=== PATIENT | female | born 1980 | race Caucasian/White ===

== ENCOUNTER 2017-07-16 11:15 | Emergency (ER) | payer BC, OTHER ==
[2017-07-16 11:22] VITALS: BP 129/95
[2017-07-16] MEDS ORDERED: AMOXICILLIN 250 MG CAPSULE PO STA (12:54)
[2017-07-16] MEDS ORDERED: DEXAMETHASONE 10 MG/ML VIAL PO STA (12:54)
[2017-07-16] MEDS ORDERED: BENZOCAINE/MENTHOL LOZENGE MM STA (12:54)
--- NOTE | 2017-07-16 12:59 | ED Physician Documentation ---
History of Present Illness - Stated complaint Stated Complaint: THROAT/EAR PX - Chief complaint Chief Complaint: Heent - Additonal information Additional information: fever sore throat ear pain for 2 days denies preg Review of Systems Constitutional: reports: Fever, Myalgias Ears: reports: Ear pain Throat: reports: Sore throat Respiratory: denies: Cough : denies: Now EGA PD ED PE NORMAL - Vitals Vital signs reviewed: Yes - HEENT HEENT: Moist mucous membranes. 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) - Neck Neck: Supple, no meningeal sign - Cardiac Cardiac: RRR - Respiratory Respiratory: No respiratory distress, Clear bilaterally - Derm Derm: Normal color - Neuro Neuro: Alert and oriented X 3 Results - Vitals Vitals: Vital Signs - 24 hr 07/16/17 11:18 Temperature 37.3 C Heart Rate 110 H Respiratory 15 Rate Blood Pressure 129/95 H O2 Saturation 99 Oxygen O2 Source Room air - Labs Labs: Laboratory Tests 07/16/17 11:23 Group A Strep Rapid Negative PD MEDICAL DECISION MAKING - ED course ED course: HR noted, in pain, has had fevers, dehydrated 2/2 sore throat - doubt sepsis etc Departure - Departure Disposition: 01 Home, Self Care Clinical Impression: Pharyngitis Qualifiers: Pharyngitis/tonsillitis etiology: unspecified etiology Qualified Code(s): J02.9 - Acute pharyngitis, unspecified Otitis media Qualifiers: Otitis media type: suppurative Chronicity: acute Laterality: left Recurrence: not specified as recurrent Spontaneous tympanic membrane rupture: without spontaneous rupture Qualified Code(s): H66.002 - Acute suppurative otitis media without spontaneous rupture of ear drum, left ear Condition: Good Instructions: ED Otitis Media Acute Adult Follow-Up: Jomar Vásquez DO [Primary Care Provider] - Comments: The rapid strep tests was negative An official throat culture will also be run But since you have an ear infection as well, i have prescribed antibiotics The dose of steroids given in the ER should decrease the pain and swelling in your throat - you need to then drink more fluids because your heart rate is a little elevated which indicates you may be getting dehydrated Motrin and tylenol as needed for pain
== END 2017-07-16 13:25 | disposition home or self-care (01) ==
LOC: ED 11:15
DX: J02.9 Acute pharyngitis, unspecified (principal); H66.002 Acute suppurative otitis media without spontaneous rupture of ear drum, left ear
CPT/HCPCS: 87070; 87430; 99282; 99283; A9270

== ENCOUNTER 2017-12-01 12:27 | Emergency (ER) | payer BC, MEDICARE ==
[2017-12-01 12:52] LABS: BASOPHILS % (AUTO) 0.6 %; EOSINOPHILS # (AUTO) 0.3 10^3/uL (0.0-0.7); EOSINOPHILS % (AUTO) 3.8 %; HGB - HEMOGLOBIN 13.4 g/dL (12.0-16.0); LYMPHOCYTES % (AUTO) 27.3 %; MEAN CORPUSCULAR HEMOGLOBIN 31.3 pg (27.0-31.0); MEAN CORPUSCULAR HGB CONC 34.7 g/dL (32.0-36.0); MEAN PLATELET VOLUME 8.2 fL (7.9-10.8); MONOCYTES # (AUTO) 0.6 10^3/uL (0.0-1.0); MONOCYTES % (AUTO) 7.8 %; NEUTROPHILS # (AUTO) 4.4 10^3/uL (1.5-6.6); NEUTROPHILS % (AUTO) 60.5 %; PLT - PLATELET COUNT 254 10^3/uL (130-450); RED BLOOD COUNT 4.27 10^6/uL (4.20-5.40); RED CELL DISTRIBUTION WIDTH 12.4 % (12.0-15.0); WHITE BLOOD COUNT 7.2 x10^3/uL (4.8-10.8)
[2017-12-01 13:00] LABS: BILIRUBIN,URINE NEGATIVE (NEGATIVE); GLUCOSE, URINE (UA) NEGATIVE (NEGATIVE); KETONES,URINE (UA) NEGATIVE (NEGATIVE); LEUKOCYTE ESTERASE, URINE NEGATIVE (NEGATIVE); NITRITE,URINE NEGATIVE (NEGATIVE); OCCULT BLOOD,URINE LARGE (NEGATIVE); PH,URINE 7.5 PH (5.0-7.5); PROTEIN,URINE NEGATIVE (NEGATIVE); UROBILINOGEN,URINE 0.2 (NORMAL) E.U./dL (NORMAL)
[2017-12-01 13:06] LABS: ALBUMIN 4.3 g/dL (3.2-5.5); ALBUMIN/GLOBULIN RATIO 1.6 (1.0-2.2); BILIRUBIN,TOTAL 0.4 mg/dL (0.2-1.0); CALCIUM 9.4 mg/dL (8.5-10.3); CREATININE 0.7 mg/dL (0.4-1.0)
[2017-12-01 13:07] LABS: CLARITY,URINE CLEAR (CLEAR); HCG UR QUAL POSITIVE
[2017-12-01 13:32] LABS: RBC,URINE 0-5 /HPF (0-5)
[2017-12-01 13:33] LABS: BACTERIA,URINE Few /HPF (None Seen); SQUAMOUS EPITHELIAL CELL,UR MOD Squamous (<= Few)
--- NOTE | 2017-12-01 14:32 | ED Physician Documentation ---
PD HPI ABD PAIN - Stated complaint Stated Complaint: AB PX/FEM - Chief complaint Chief Complaint: Abd Pain - History obtained from History obtained from: Patient - Additional information Additional information: 37-year-old female presents the emergency department with ongoing vaginal bleeding over the past several weeks. The patient also reports lower abdominal cramping associated with the bleeding. The patient denies a focal area of abdominal pain. No dysuria. No specific triggering factors. No relieving factors. The patient was seen by HOISTER and started on progesterone, the patient only took 1 dose because she had difficulty tolerating the side effects. Symptoms are described as moderate. Review of Systems Constitutional: reports: Fatigue. denies: Fever Eyes: denies: Photophobia Ears: denies: Ear pain Nose: denies: Rhinorrhea / runny nose Throat: denies: Sore throat Cardiac: denies: Chest pain / pressure Respiratory: denies: Cough GI: reports: Abdominal Pain : reports: Vaginal bleeding. denies: Dysuria, Discharge Skin: denies: Rash Musculoskeletal: denies: Neck pain Neurologic: denies: Generalized weakness Immunocompromised: denies: Chemotherapy PD PAST MEDICAL HISTORY - Past Surgical History Past Surgical History: No - Present Medications Home Medications: Ambulatory Orders Medication Instructions Recorded Confirmed Lurasidone HCl [Latuda] 80 mg ORAL DAILY 12/01/17 12/01/17 lamoTRIgine [LaMICtal] 200 mg ORAL DAILY 12/01/17 12/01/17 - Allergies Allergies/Adverse Reactions: Allergies Allergy/AdvReac Type Severity Reaction Status Date / Time narcotics Allergy Hallucinati Uncoded 12/01/17 12:33 ons - Social History Does the pt smoke?: No Smoking Status: Never smoker Does the pt drink ETOH?: No Does the pt have substance abuse?: No - Immunizations Immunizations are current?: Yes - POLST Patient has POLST: No PD ED PE NORMAL - General General: Alert and oriented X 3, No acute distress - HEENT HEENT: Atraumatic, PERRL, EOMI, Ears normal, Moist mucous membranes - Neck Neck: Supple, no meningeal sign - Cardiac Cardiac: RRR, Strong equal pulses - Respiratory Respiratory: No respiratory distress - Abdomen Abdomen: Soft, Non tender, Non distended - Back Back: No CVA TTP - Derm Derm: Normal color - Extremities Extremities: No deformity, No edema - Neuro Neuro: Alert and oriented X 3, Normal speech - Psych Psych: Normal affect Results - Vitals Vitals: Vital Signs - 24 hr 12/01/17 12/01/17 12/01/17 12:29 15:09 17:06 Temperature 36.8 C 36.6 C Heart Rate 91 86 93 Respiratory 16 18 16 Rate Blood Pressure 130/90 H 137/95 H 125/94 H O2 Saturation 94 99 96 Oxygen O2 Source Room air - Labs Labs: Laboratory Tests 12/01/17 12/01/17 12/01/17 12:45 12:45 12:55 WBC 7.2 RBC 4.27 Hgb 13.4 Hct 38.4 MCV 90.0 MCH 31.3 H MCHC 34.7 RDW 12.4 Plt Count 254 MPV 8.2 Neut # (Auto) 4.4 Lymph # (Auto) 2.0 [place] # (Auto) 0.6 Eos # (Auto) 0.3 Baso # (Auto) 0.0 Absolute Nucleated RBC 0.00 Nucleated RBC % 0.1 Sodium 139 Potassium 3.9 Chloride 103 Carbon Dioxide 27 Anion Gap 9.0 BUN 12 Creatinine 0.7 Estimated GFR (MDRD) 94 Glucose 91 Calcium 9.4 Total Bilirubin 0.4 AST 22 ALT 42 Alkaline Phosphatase 71 Total Protein 7.0 Albumin 4.3 Globulin 2.7 Albumin/Globulin Ratio 1.6 Lipase 24 HCG, Quant Urine Color YELLOW Urine Clarity CLEAR Urine pH 7.5 Ur Specific [place] 1.015 Urine Protein NEGATIVE Urine Glucose (UA) NEGATIVE Urine Ketones NEGATIVE Urine Occult Blood LARGE H Urine Nitrite NEGATIVE Urine Bilirubin NEGATIVE Urine Urobilinogen 0.2 (NORMAL) Ur Leukocyte Esterase NEGATIVE Urine RBC 0-5 Urine WBC 0-3 Ur Squamous Epith Cells MOD Squamous H Urine Bacteria Few Ur Microscopic Review INDICATED Urine Culture Comments NOT INDICATED Urine HCG, Qual POSITIVE Blood Type Antibody Screen 12/01/17 12/01/17 13:51 Unknown WBC RBC Hgb Hct MCV MCH MCHC RDW Plt Count MPV Neut # (Auto) Lymph # (Auto) [place] # (Auto) Eos # (Auto) Baso # (Auto) Absolute Nucleated RBC Nucleated RBC % Sodium Potassium Chloride Carbon Dioxide Anion Gap BUN Creatinine Estimated GFR (MDRD) Glucose Calcium Total Bilirubin AST ALT Alkaline Phosphatase Total Protein Albumin Globulin Albumin/Globulin Ratio Lipase HCG, Quant 847.21 Urine Color Urine Clarity Urine pH Ur Specific [place] Urine Protein Urine Glucose (UA) Urine Ketones Urine Occult Blood Urine Nitrite Urine Bilirubin Urine Urobilinogen Ur Leukocyte Esterase Urine RBC Urine WBC Ur Squamous Epith Cells Urine Bacteria Ur Microscopic Review Urine Culture Comments Urine HCG, Qual Blood Type A NEGATIVE Antibody Screen NEGATIVE - Rads (name of study) OB US Radiology: Final report received (1. An intrauterine gestation is not definitely seen. No adnexal masses are present. A small amount of free fluid is present. Suggest follow-up ultrasound in 10-14 days and correlation with beta-hCG levels. ) PD MEDICAL DECISION MAKING - ED course ED course: The patient's workup is indeterminate at this point. The patient has no clear findings on her ultrasound to suggest ectopic but it has not been fully ruled out. On reevaluation the patient is resting comfortably and appears to be in no significant distress. Presently, the patient appears appropriate for ongoing workup as an outpatient. I discussed this with the patient and she understands and agrees. I discussed the case with the on-call HOISTER Dr. Olsen who agrees to follow-up the patient in clinic for ongoing management. The patient has an appointment scheduled for this at 9:45 AM. I discussed with the patient warning signs for ectopic and various other issues and recommended returning to the emergency department immediately for any worsening or any concerns. Departure - Departure Disposition: 01 Home, Self Care Clinical Impression: Early stage of , Vaginal bleeding before 22 weeks gestation Condition: Good Instructions: Preg 1st Trimester, Bleeding Early Preg, ED Abdominal Pain Rule Out Ectopic Follow-Up: Sami Olsen MD [Provider Admit Priv/Credential] - Within 3 Days (Please follow-up with HOISTER this week for further evaluation. Please have your beta hCG rechecked in 3 days. He will also need a follow-up ultrasound in 10-14 days.) Comments: Please return to the emergency department immediately for any worsening or any concerns
--- NOTE | 2017-12-01 15:18 | Ultrasound Report ---
Reason: with pain Procedure Date: 12/01/2017 Accession Number: [id number] / [id number] Procedure: US - OB First Trimester CPT Code: FULL RESULT: EXAM: FIRST TRIMESTER OBSTETRIC ULTRASOUND (Less than 11 weeks) EXAM DATE: 12/01/2017 02:56 PM. CLINICAL HISTORY: with pain. LMP: Unknown. COMPARISONS: None. TECHNIQUE: Transabdominal and transvaginal ultrasound examination with static image documentation. CLINICAL DATES: EGA uncertain ASSESSMENT: Gestational Sac: Not definitely seen Embryo: Not seen Cardiac activity: Not seen MATERNAL STRUCTURES: Uterus: Anteverted. Unremarkable. Cervix: Closed. Right Ovary/Adnexa: The ovary measures 2 x 2.3 x 3.1 cm, volume 7.5 cc. Unremarkable. Left Ovary/Adnexa: The ovary measures 3.9 x 3.2 x 3.3 cm, volume 21.5 cc. Small cyst 2.3 x 1.4 x 2.1 cm Free Fluid: Small amount. Other: None. IMPRESSION: 1. An intrauterine gestation is not definitely seen. No adnexal masses are present. A small amount of free fluid is present. Suggest follow-up ultrasound in 10-14 days and correlation with beta-hCG levels. RADIA
[2017-12-01] MEDS ORDERED: RHO(D) IMMUNE GLOBULIN 300 MCG SYRINGE IM STA (16:30)
[2017-12-01 17:08] VITALS: BP 125/94
== END 2017-12-01 17:46 | disposition home or self-care (01) ==
LOC: ED 12:27
DX: O20.9 Hemorrhage in early pregnancy, unspecified (principal); Z3A.22 22 weeks gestation of pregnancy
CPT/HCPCS: 36415; 76801; 76817; 80053; 81001; 81003; 81025; 83690; 84702; 85025; 86850; 86900; 86901; 87086; 96372; 99283

== ENCOUNTER 2017-12-03 10:48 | Outpatient (CLI) | payer BC, MEDICARE | END 2017-12-03 10:49 | disposition home or self-care (01) | LOC: LAB 10:48 | PROVIDERS: ATTEND Obstetrics & Gynecology | DX: O20.0 Threatened abortion (principal) | CPT/HCPCS: 36415; 84144; 84702 ==

== ENCOUNTER 2017-12-03 11:17 | Outpatient (CLI) | payer BC, MEDICARE | END 2017-12-03 11:18 | disposition home or self-care (01) | LOC: LAB.R 11:17 | PROVIDERS: ATTEND Obstetrics & Gynecology | DX: O20.0 Threatened abortion (principal) | CPT/HCPCS: 87480; 87491; 87510; 87591; 87660 ==

== ENCOUNTER 2017-12-05 18:19 | Outpatient (CLI) | payer BC, MEDICARE | END 2017-12-05 18:20 | disposition home or self-care (01) | LOC: LAB 18:19 | PROVIDERS: ATTEND Obstetrics & Gynecology | DX: O20.0 Threatened abortion (principal) | CPT/HCPCS: 36415; 84702 ==

== ENCOUNTER 2017-12-15 14:36 | Outpatient (CLI) | payer BC, MEDICARE ==
[2017-12-15 15:48] LABS: BASOPHILS % (AUTO) 0.3 %; EOSINOPHILS # (AUTO) 0.3 10^3/uL (0.0-0.7); EOSINOPHILS % (AUTO) 4.2 %; HGB - HEMOGLOBIN 12.2 g/dL (12.0-16.0); LYMPHOCYTES # (AUTO) 1.3 10^3/uL (1.5-3.5); LYMPHOCYTES % (AUTO) 19.5 %; MEAN CORPUSCULAR HEMOGLOBIN 31.5 pg (27.0-31.0); MEAN CORPUSCULAR HGB CONC 34.6 g/dL (32.0-36.0); MEAN CORPUSCULAR VOLUME 91.1 fL (81.0-99.0); MEAN PLATELET VOLUME 8.9 fL (7.9-10.8); MONOCYTES # (AUTO) 0.4 10^3/uL (0.0-1.0); MONOCYTES % (AUTO) 6.1 %; NEUTROPHILS # (AUTO) 4.6 10^3/uL (1.5-6.6); NEUTROPHILS % (AUTO) 69.9 %; PLT - PLATELET COUNT 242 10^3/uL (130-450); RED BLOOD COUNT 3.88 10^6/uL (4.20-5.40); RED CELL DISTRIBUTION WIDTH 12.9 % (12.0-15.0); WHITE BLOOD COUNT 6.6 x10^3/uL (4.8-10.8)
== END 2017-12-15 14:37 | disposition home or self-care (01) ==
LOC: LAB 14:36
PROVIDERS: ATTEND Obstetrics & Gynecology
DX: O02.1 Missed abortion (principal)
CPT/HCPCS: 36415; 84702; 85025

== ENCOUNTER 2018-03-24 12:40 | Outpatient (CLI) | payer BC, MEDICARE ==
[2018-03-24 13:00] LABS: BASOPHILS % (AUTO) 0.8 %; EOSINOPHILS # (AUTO) 0.1 10^3/uL (0.0-0.7); EOSINOPHILS % (AUTO) 1.3 %; HGB - HEMOGLOBIN 14.2 g/dL (12.0-16.0); LYMPHOCYTES # (AUTO) 1.6 10^3/uL (1.5-3.5); LYMPHOCYTES % (AUTO) 26.6 %; MEAN CORPUSCULAR HEMOGLOBIN 30.2 pg (27.0-31.0); MEAN CORPUSCULAR VOLUME 88.8 fL (81.0-99.0); MEAN PLATELET VOLUME 8.3 fL (7.9-10.8); MONOCYTES # (AUTO) 0.4 10^3/uL (0.0-1.0); MONOCYTES % (AUTO) 7.4 %; NEUTROPHILS # (AUTO) 3.8 10^3/uL (1.5-6.6); NEUTROPHILS % (AUTO) 63.9 %; PLT - PLATELET COUNT 257 10^3/uL (130-450); RED BLOOD COUNT 4.68 10^6/uL (4.20-5.40); RED CELL DISTRIBUTION WIDTH 12.3 % (12.0-15.0); WHITE BLOOD COUNT 5.9 x10^3/uL (4.8-10.8)
[2018-03-24 13:27] LABS: ALBUMIN 4.4 g/dL (3.2-5.5); ALBUMIN/GLOBULIN RATIO 1.5 (1.0-2.2); BILIRUBIN,TOTAL 0.6 mg/dL (0.2-1.0); CALCIUM 9.1 mg/dL (8.5-10.3); CREATININE 0.7 mg/dL (0.4-1.0); TOTAL PROTEIN 7.3 g/dL (6.7-8.2)
[2018-03-24 14:24] LABS: THYROID STIMULATING HORMONE 1.04 uIU/mL (0.34-5.60)
[2018-03-24 14:26] LABS: FREE T4 (FREE THYROXINE) 0.82 ng/dL (0.58-1.64)
== END 2018-03-24 12:41 | disposition home or self-care (01) ==
LOC: LAB 12:40
PROVIDERS: ATTEND Nurse Practitioner Obstetrics & Gynecology
DX: R10.84 Generalized abdominal pain (principal); R10.2 Pelvic and perineal pain; R63.5 Abnormal weight gain; Z87.59 Personal history of other complications of pregnancy, childbirth and the puerperium
CPT/HCPCS: 36415; 80053; 84144; 84439; 84443; 84702; 85025

== ENCOUNTER 2018-04-07 08:03 | Outpatient (CLI) | payer MEDICARE, BC ==
--- NOTE | 2018-04-07 12:26 | Ultrasound Report ---
Reason: PELVIC PAIN Procedure Date: 04/07/2018 Accession Number: [id number] / [id number] Procedure: US - Pelvic w/Transvaginal CPT Code: FULL RESULT: EXAM: PELVIC ULTRASOUND EXAM DATE: 04/07/2018 09:15 AM. CLINICAL HISTORY: Pelvic pain. COMPARISON: None. TECHNIQUE: Realtime transabdominal pelvic scan performed to identify the uterus and adnexa and as an overview of other pelvic structures, followed by transvaginal scan to provide greater detail of the uterus and adnexa, with static image documentation. FINDINGS: Uterus: 6.2 x 2.7 x 3.4 cm, volume 30 cc. Anteverted position. Myometrium is within normal limits. Masses: None. Endometrium: 4.9 mm. Calcifications are identified along endometrium with apparent color Doppler signal in the endometrial region felt to be twinkle artifact. Cervix: Unremarkable. Right Ovary: 2.2 x 3.6 x 2.6 cm, volume 10.7 cc. Normal echotexture and blood flow. Dominant follicle measuring up to 1.6 cm is felt to be within physiologic limits. Left Ovary: 1.8 x 3.6 x 3.1 cm, volume 10.5 cc. Normal echotexture and blood flow. Free Fluid: None. Other: None. IMPRESSION: Calcifications within the endometrium. RADIA
--- NOTE | 2018-04-07 12:56 | Ultrasound Report ---
Reason: LOWER ABD PAIN Procedure Date: 04/07/2018 Accession Number: [id number] / [id number] Procedure: US - Abdomen Complete CPT Code: FULL RESULT: EXAM: ABDOMEN ULTRASOUND EXAM DATE: 04/07/2018 10:05 AM. CLINICAL HISTORY: Lower abdominal pain. COMPARISON: None. TECHNIQUE: Real-time scanning was performed with static images obtained. FINDINGS: Liver: Echogenic parenchyma which limits evaluation for underlying masses though none are seen. Right lobe of the liver measures at least 14.4 cm. Main portal vein flow: Hepatopetal. Gallbladder: Normal. No stones, wall thickening, or sonographic Gonzalez's sign. Biliary System: Common bile duct measures 4 mm. No intrahepatic or extrahepatic ductal dilatation. Pancreas: Visualized portion is unremarkable. Kidneys: Right: 11.4 cm longitudinally. Increased echogenicity of the medullary portions raising question of medullary nephrocalcinosis. A 1.3 cm simple cyst is also seen. Left: 12.7 cm longitudinally. Increased echogenicity of the medullary portions raising question of medullary nephrocalcinosis. Spleen: 10.8 cm. Normal in size and echotexture. Aorta and Inferior Vena Cava: Unremarkable. Other: None. IMPRESSION: Bilateral increased echogenicity of renal medulla, question medullary nephrocalcinosis. Echogenic liver parenchyma, likely steatosis. RADIA
== END 2018-04-07 08:04 | disposition home or self-care (01) ==
LOC: DI 08:03
PROVIDERS: ATTEND Nurse Practitioner Obstetrics & Gynecology
DX: R10.2 Pelvic and perineal pain (principal); R10.30 Lower abdominal pain, unspecified; N85.8 Other specified noninflammatory disorders of uterus
CPT/HCPCS: 76700; 76830; 76856

== ENCOUNTER 2018-05-07 11:48 | Outpatient (CLI) | payer BC, MEDICARE ==
[~2018-05-07 11:48] MED LIST: IOVERSOL 320 100 ML VIAL IVP ONE; IOVERSOL 320 50 ML VIAL ONE
[2018-05-07] MEDS ORDERED: IOPAMIDOL-300 100 ML VIAL ONE (12:17)
[2018-05-07] MEDS ORDERED: IOVERSOL 320 50 ML VIAL ONE (12:17)
[2018-05-07] MEDS ORDERED: IOPAMIDOL-300 100 ML VIAL IVP ONE (13:24)
[2018-05-07] MEDS ORDERED: IOVERSOL 320 50 ML VIAL PO ONE (13:24)
--- NOTE | 2018-05-07 15:51 | CT Report ---
Reason: PT STATES THAT SHE HAS HAD IV CONTRAST A COUPLE TI Procedure Date: 05/07/2018 Accession Number: [id number] / [id number] Procedure: CT - Abdomen/Pelvis W CPT Code: FULL RESULT: EXAM: CT ABDOMEN AND PELVIS EXAM DATE: 05/07/2018 01:23 PM. CLINICAL HISTORY: PT STATES THAT SHE HAS HAD IV CONTRAST A COUPLE TI. COMPARISONS: None. TECHNIQUE: Routine helical CT imaging was performed through the abdomen and pelvis. IV contrast: ISOVUE 300 100mL. Enteric contrast: Yes. Reconstructions: Coronal and sagittal. In accordance with CT protocol optimization, one or more of the following dose reduction techniques were utilized for this exam: automated exposure control, adjustment of mA and/or KV based on patient size, or use of iterative reconstructive technique. FINDINGS: Lung Bases: Unremarkable. Liver: Normal. No masses. Gallbladder/Bile Ducts: Unremarkable. Spleen: Normal. Pancreas: Normal. Adrenal Glands: Normal. Kidneys: Bilateral small renal cysts Peritoneal Cavity/Bowel: Small fat-containing umbilical hernia Sigmoid diverticulosis. No free fluid, free air or adenopathy. No masses or acute inflammatory process. The appendix is well visualized and normal. Pelvic Organs: Left ovary 1.5 cm corpus luteal cyst. The bladder and visualized pelvic organs are otherwise within normal limits. Vasculature: No aneurysms or other significant abnormality. Bones: No significant abnormality. Other: None. IMPRESSION: 1. Small bilateral renal cysts. 2. Normal appendix. 3. Sigmoid diverticulosis. 4. Left ovary 1.5 cm corpus luteal cyst RADIA
== END 2018-05-07 11:49 | disposition home or self-care (01) ==
LOC: DI 11:48
PROVIDERS: ATTEND Obstetrics & Gynecology
DX: R10.2 Pelvic and perineal pain (principal); N83.12 Corpus luteum cyst of left ovary; K57.30 Diverticulosis of large intestine without perforation or abscess without bleeding; Q61.02 Congenital multiple renal cysts
CPT/HCPCS: 74177; Q9967

== ENCOUNTER 2019-01-19 16:33 | Outpatient (CLI) | payer BC, MEDICARE ==
--- NOTE | 2019-01-20 15:17 | Ultrasound Report ---
Reason: PELVIC PAIN, RT OVARIAN CYST Procedure Date: 01/19/2019 Accession Number: [id number] / [id number] Procedure: US - Pelvic w/Transvaginal CPT Code: Final Report FULL RESULT: EXAM: PELVIC ULTRASOUND EXAM DATE: 01/19/2019 04:39 PM. CLINICAL HISTORY: PELVIC PAIN, RT OVARIAN CYST. COMPARISON: PELVIC W/TRANSVAGINAL 04/07/2018 8:40 AM. TECHNIQUE: Realtime transabdominal pelvic scan performed to identify the uterus and adnexa and as an overview of other pelvic structures, followed by transvaginal scan to provide greater detail of the uterus and adnexa, with static image documentation. FINDINGS: Uterus: 7.6 x 2.8 x 4 cm, volume 41 cc. Anteverted position. Normal overall size and echotexture. Masses: None. Endometrium: 6 mm. Calcification Cervix: Nabothian cysts Right Ovary: 3.2 x 2.3 x 2.2 cm, volume 8.4 cc. Complex 1.1 x 1.5 x 1 cm cyst Normal blood flow. Left Ovary: 3.9 x 2.2 x 2.9 cm, volume 13 cc. 2.4 x 1.9 x 2.4; a pseudocyst Normal echotexture and blood flow. Free Fluid: None. Other: None. IMPRESSION: 1. Mildly complex right ovarian cyst can be followed up in 1-2 cycles. RADIA
== END 2019-01-19 16:34 | disposition home or self-care (01) ==
LOC: DI 16:33
PROVIDERS: ATTEND Naprapath
DX: N83.291 Other ovarian cyst, right side (principal)
CPT/HCPCS: 76830; 76856

== ENCOUNTER 2019-03-16 13:00 | Emergency (ER) | payer BC, MEDICARE ==
[2019-03-16 13:50] LABS: BASOPHILS % (AUTO) 0.6 %; EOSINOPHILS # (AUTO) 0.1 10^3/uL (0.0-0.7); EOSINOPHILS % (AUTO) 1.7 %; HGB - HEMOGLOBIN 14.4 g/dL (12.0-16.0); LYMPHOCYTES # (AUTO) 1.3 10^3/uL (1.5-3.5); LYMPHOCYTES % (AUTO) 24.4 %; MEAN CORPUSCULAR HEMOGLOBIN 30.8 pg (27.0-31.0); MEAN CORPUSCULAR HGB CONC 33.3 g/dL (32.0-36.0); MEAN CORPUSCULAR VOLUME 92.3 fL (81.0-99.0); MEAN PLATELET VOLUME 10.3 fL (7.9-10.8); MONOCYTES # (AUTO) 0.5 10^3/uL (0.0-1.0); MONOCYTES % (AUTO) 8.3 %; NEUTROPHILS # (AUTO) 3.5 10^3/uL (1.5-6.6); NEUTROPHILS % (AUTO) 64.6 %; PLT - PLATELET COUNT 263 10^3/uL (130-450); RED BLOOD COUNT 4.68 10^6/uL (4.20-5.40); RED CELL DISTRIBUTION WIDTH 12.3 % (12.0-15.0); WHITE BLOOD COUNT 5.4 x10^3/uL (4.8-10.8)
[2019-03-16 14:05] LABS: ALBUMIN 4.5 g/dL (3.2-5.5); ALBUMIN/GLOBULIN RATIO 1.5 (1.0-2.2); BILIRUBIN,TOTAL 0.4 mg/dL (0.2-1.0); CALCIUM 9.1 mg/dL (8.5-10.3); CREATININE 0.8 mg/dL (0.4-1.0); TOTAL PROTEIN 7.5 g/dL (6.7-8.2)
--- NOTE | 2019-03-16 15:04 | Ultrasound Report ---
Reason: pelvic pain, R Procedure Date: 03/16/2019 Accession Number: [id number] / [id number] Procedure: US - Pelvic w/Transvag+Doppler Comp CPT Code: Final Report FULL RESULT: EXAM: PELVIC ULTRASOUND WITH DOPPLERS CLINICAL HISTORY: Right pelvic pain. COMPARISON: None. TECHNIQUE: Realtime transabdominal imaging performed to identify the uterus and adnexa and as an overview of other pelvic structures, followed by transvaginal imaging for better assessment of the endometrium and adnexa, with static image documentation. Color flow imaging and Doppler spectral analysis was performed to evaluate blood flow to the ovaries given pelvic pain and clinical concern for ovarian torsion. FINDINGS: Uterus: 6.8 x 3.3 x 3.9 cm, volume 45 cc. Anteverted position. Overall normal size and echotexture. Masses: A subserosal 0.6 cm hypoechoic mass is seen posteriorly, small fibroid versus venous dilation. Endometrium: 6 mm. Echogenic foci within the endometrium potentially represent focal calcifications. No convincing abnormal endometrial vascularity is detected. Cervix: Nabothian cysts are noted. Right Ovary: 3 x 2.3 x 2.5 cm, volume 9 cc. Normal echotexture. Arterial and venous blood flow are present by spectral Doppler and color Doppler. PSV 16.4 cm/sec. RI 0.7. Adnexa are unremarkable. Left Ovary: 2.9 x 3.3 x 3.2 cm, volume 16 cc. Normal echotexture. Arterial and venous blood flow is present. PSV 19.7 cm/sec. RI 0.4. Adnexa are unremarkable. Free Fluid: There is free fluid by the right ovary. Other: None. IMPRESSION: 1. Free fluid by the right ovary. Potentially ruptured cyst. 2. Arterial and venous blood flow is demonstrated to the right and left ovary. RADIA
[2019-03-16] MEDS ORDERED: HYDROmorphone 2 MG TABLET PO STA (15:09)
--- NOTE | 2019-03-16 15:13 | ED Physician Documentation ---
PD HPI ABD PAIN - Stated complaint Stated Complaint: ABD PX - Chief complaint Chief Complaint: Abd Pain - History obtained from History obtained from: Patient - History of Present Illness Timing - onset: How many weeks ago (2) Timing - duration: Weeks (2) Timing - details: Gradual onset Pain level max: 8 Pain level now: 8 Quality: Aching, Pain Location: RLQ Radiation: Other (non-radiating) Improved by: Laying still Worsened by: Moving Associated symptoms: No: Fever, Nausea, Vomiting, Hematemesis, Diarrhea, Constipation Similar symptoms before: Diagnosis (Patient states that she has polycystic ovarian syndrome and has recurrent ovarian cyst. She states that she is awaiting a hysterectomy at [facility]) Recently seen: Not recently seen Review of Systems Constitutional: denies: Fever, Chills Throat: denies: Sore throat Cardiac: denies: Chest pain / pressure Respiratory: denies: Cough GI: denies: Vomiting, Diarrhea : denies: Now EGA Skin: denies: Rash Musculoskeletal: denies: Neck pain, Back pain Neurologic: denies: Headache PD PAST MEDICAL HISTORY - Past Medical History Past Medical History: Yes Respiratory: Asthma FENCE RIDER: Other (PCOS) Psych: Bipolar disorder Musculoskeletal: Fibromyalgia - Past Surgical History Past Surgical History: Yes /FENCE RIDER: Dilation and currettage - Present Medications Home Medications: Ambulatory Orders Medication Instructions Recorded Confirmed Lurasidone HCl [Latuda] 80 mg ORAL DAILY 12/01/17 12/01/17 lamoTRIgine [LaMICtal] 200 mg ORAL DAILY 12/01/17 12/01/17 HYDROmorphone [Dilaudid] 2 mg PO Q4H PRN #14 tablet 03/16/19 - Allergies Allergies/Adverse Reactions: Allergies Allergy/AdvReac Type Severity Reaction Status Date / Time narcotics Allergy Hallucinati Uncoded 03/16/19 13:12 ons - Living Situation Living Situation: reports: With family Living Arrangement: reports: At home - Social History Does the pt smoke?: No Smoking Status: Never smoker Does the pt drink ETOH?: No Does the pt have substance abuse?: No - Immunizations Immunizations are current?: Yes - POLST Patient has POLST: No PD ED PE NORMAL - Vitals Vital signs reviewed: Yes - General General: Alert and oriented X 3, No acute distress, Well developed/nourished - HEENT HEENT: Moist mucous membranes - Neck Neck: Supple, no meningeal sign - Cardiac Cardiac: RRR - Respiratory Respiratory: No respiratory distress, Clear bilaterally - Abdomen Abdomen: Soft, Non tender, Non distended - Back Back: No CVA TTP - Derm Derm: Warm and dry - Extremities Extremities: No edema - Neuro Neuro: Alert and oriented X 3 - Psych Psych: Normal mood, Normal affect Results - Vitals Vitals: Vital Signs - 24 hr 03/16/19 03/16/19 03/16/19 13:12 13:17 15:47 Temperature 36.9 C 36.9 C 36.9 C Heart Rate 89 89 78 Respiratory 17 17 12 Rate Blood Pressure 125/94 H 125/94 H 122/86 H O2 Saturation 98 98 98 Oxygen O2 Source Room air - Labs Labs: Laboratory Tests 03/16/19 03/16/19 03/16/19 13:37 13:37 13:37 WBC 5.4 RBC 4.68 Hgb 14.4 Hct 43.2 MCV 92.3 MCH 30.8 MCHC 33.3 RDW 12.3 Plt Count 263 MPV 10.3 Neut # (Auto) 3.5 Lymph # (Auto) 1.3 L [place] # (Auto) 0.5 Eos # (Auto) 0.1 Baso # (Auto) 0.0 Absolute Nucleated RBC 0.00 Nucleated RBC % 0.0 Sodium 136 Potassium 3.8 Chloride 100 L Carbon Dioxide 25 Anion Gap 11.0 BUN 11 Creatinine 0.8 Estimated GFR (MDRD) 80 L Glucose 95 Calcium 9.1 Total Bilirubin 0.4 AST 19 ALT 27 Alkaline Phosphatase 65 Total Protein 7.5 Albumin 4.5 Globulin 3.0 Albumin/Globulin Ratio 1.5 Lipase 33 HCG, Quant < 0.60 Urine Color Urine Clarity Urine pH Ur Specific [place] Urine Protein Urine Glucose (UA) Urine Ketones Urine Occult Blood Urine Nitrite Urine Bilirubin Urine Urobilinogen Ur Leukocyte Esterase Ur Microscopic Review Urine Culture Comments 03/16/19 15:10 WBC RBC Hgb Hct MCV MCH MCHC RDW Plt Count MPV Neut # (Auto) Lymph # (Auto) [place] # (Auto) Eos # (Auto) Baso # (Auto) Absolute Nucleated RBC Nucleated RBC % Sodium Potassium Chloride Carbon Dioxide Anion Gap BUN Creatinine Estimated GFR (MDRD) Glucose Calcium Total Bilirubin AST ALT Alkaline Phosphatase Total Protein Albumin Globulin Albumin/Globulin Ratio Lipase HCG, Quant Urine Color YELLOW Urine Clarity CLEAR Urine pH 6.0 Ur Specific [place] <=1.005 Urine Protein NEGATIVE Urine Glucose (UA) NEGATIVE Urine Ketones NEGATIVE Urine Occult Blood TRACE-INTA Urine Nitrite NEGATIVE Urine Bilirubin NEGATIVE Urine Urobilinogen 0.2 (NORMAL) Ur Leukocyte Esterase NEGATIVE Ur Microscopic Review NOT INDICATED Urine Culture Comments NOT INDICATED - Rads (name of study) Pelvic ultrasound Radiology: Prelim report reviewed, EMP read contemporaneously, See rad report (. Free fluid by the right ovary. Potentially ruptured cyst. Arterial and venous blood was demonstrated to the right and left ovary. ) PD MEDICAL DECISION MAKING - ED course Complexity details: reviewed results, re-evaluated patient, considered differential, d/w patient ED course: 38-year-old female with what appears to be a ruptured ovarian cyst. Has polycystic ovarian syndrome. Will prescribe pain medication for home and have her follow-up with her doctor for further care. Patient counseled regarding signs and symptoms for which I believe and urgent re-evaluation would be necessary. Patient with good understanding of and agreement to plan and is comfortable going home at this time This document was made in part using voice recognition software. While efforts are made to proofread this document, sound alike and grammatical errors may occur. Departure - Departure Disposition: 01 Home, Self Care Clinical Impression: Ruptured ovarian cyst Condition: Good Instructions: ED Cyst Ovarian Follow-Up: SARITA AYOUB MD [Physician No Access] - Within 1 week ROWENA FRAIRE DO [Primary Care Provider] - MELANIE SKINNER [Physician No Access] - Prescriptions: HYDROmorphone [Dilaudid] 2 mg PO Q4H PRN #14 tablet PRN Reason: Abdominal Pain Comments: You appear to have a right-sided ovarian cyst that has ruptured. It does not appear to be bleeding. Your blood counts are normal. Use the pain medication as needed. Follow-up with your doctor for further care. Do not drink alcohol or drive while on narcotic pain medicine. Note that many narcotic pain relievers also contain tylenol/acetaminophen. Please ensure that your total dose of acetaminophen from all sources does not exceed 3 grams (3000mg) per day. You may constipated on this medication, take a stool softener such as "Colace" twice a day while you are on it. Also recommend a [id number] laxative such as senna or MiraLAX any day that you do not have a bowel movement. If you received narcotic pain medication in the emergency department, do not drive or operate machinery for the next 24 hours. Discharge Date/Time: 03/16/19 15:51
[2019-03-16 15:18] LABS: BILIRUBIN,URINE NEGATIVE (NEGATIVE); GLUCOSE, URINE (UA) NEGATIVE (NEGATIVE); KETONES,URINE (UA) NEGATIVE (NEGATIVE); LEUKOCYTE ESTERASE, URINE NEGATIVE (NEGATIVE); NITRITE,URINE NEGATIVE (NEGATIVE); OCCULT BLOOD,URINE TRACE-INTA (NEGATIVE); PROTEIN,URINE NEGATIVE (NEGATIVE); UROBILINOGEN,URINE 0.2 (NORMAL) E.U./dL (NORMAL)
[2019-03-16 15:20] LABS: CLARITY,URINE CLEAR (CLEAR)
[2019-03-16 15:48] VITALS: BP 122/86
== END 2019-03-16 15:51 | disposition home or self-care (01) ==
LOC: ED 13:00
DX: N83.201 Unspecified ovarian cyst, right side (principal); E28.2 Polycystic ovarian syndrome
CPT/HCPCS: 36415; 76830; 76856; 80053; 81003; 83690; 84702; 85025; 93975; 99284; A9270; 81001; 87086

== ENCOUNTER 2019-09-09 18:22 | Outpatient (CLI) | payer BC, MEDICARE ==
--- NOTE | 2019-09-09 19:57 | Ultrasound Report ---
PROCEDURE: Abdomen Limited INDICATIONS: RLQ PAIN, LLQ PAIN, HX OF DIVERTICULITIS TECHNIQUE: Real-time focused scanning was performed of the abdomen, with image documentation. COMPARISON: CT of abdomen and pelvis dated 05/07/2018 FINDINGS: Appendix is not visualized. There is absence of free fluid in right lower quadrant. No lymphadenopath y is seen. Tendinosis with observed during the exam. IMPRESSION: Appendix is not visualized on the current study. Right lower quadrant pain noted during the study. Ap pendicitis is not excluded. Reviewed by: Osmin Tolliver MD on 09/09/2019 7:56 PM PDT Approved by: Osmin Tolliver MD on 09/09/2019 7:56 PM PDT Station ID: [id number]
== END 2019-09-09 18:23 | disposition home or self-care (01) ==
LOC: DI 18:22
PROVIDERS: ATTEND Naprapath
DX: R10.31 Right lower quadrant pain (principal); R10.32 Left lower quadrant pain; Z87.19 Personal history of other diseases of the digestive system
CPT/HCPCS: 76705

== ENCOUNTER 2019-10-01 07:56 | Outpatient (CLI) | payer BC, MEDICARE ==
[2019-10-01 08:48] LABS: ALBUMIN 4.6 g/dL (3.2-5.5); ALBUMIN/GLOBULIN RATIO 1.9 (1.0-2.2); BILIRUBIN,TOTAL 0.5 mg/dL (0.2-1.0); CALCIUM 9.1 mg/dL (8.5-10.3); CREATININE 0.8 mg/dL (0.4-1.0)
== END 2019-10-01 07:57 | disposition home or self-care (01) ==
LOC: LAB 07:56
PROVIDERS: ATTEND Psychiatry & Neurology Psychiatry
DX: F31.74 Bipolar disorder, in full remission, most recent episode manic (principal); Z79.899 Other long term (current) drug therapy
CPT/HCPCS: 36415; 80053; 80175

== ENCOUNTER 2019-11-28 18:52 | Outpatient (CLI) | payer BC, MEDICARE ==
--- NOTE | 2019-11-29 16:34 | Ultrasound Report ---
PROCEDURE: Pelvic w/Transvaginal INDICATIONS: PELVIC PAIN TECHNIQUE: Real-time scanning was performed of the pelvic organs, with image documentation. Additional endovagi nal scanning was necessary due to incomplete visualization of the adnexal and endometrial structures by transabdominal scanning. COMPARISON: Pelvic ultrasound 03/16/2019 04/07/2018, abdomen ultrasound 01/10/2020 FINDINGS: Transabdominal scanning: Limited scanning through the kidneys shows no hydronephrosis. 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 No pathologic free abdominal or pelvic fluid. Endovaginal scanning: Uterus: Uterus is normal in size at 7.2 x 3.0 x 4.0 cm The endometrium measures 8 mm in combined t hickness. There is a subtle focus of heterotopic echogenicity within the mid posterior subserosal re gion measuring 6 x 3 x 4 mm, similar compared to prior exam. Nabothian cysts are noted. Ovaries: Right ovary measures 3.4 x 2.7 x 3.0 cm, volume 14.5 cc. Left ovary measures 3.3 x 2.0 x 2. 1 cm, volume 7.3 cc. Prominent right ovarian follicle is noted. IMPRESSION: 1. Stable appearance of mild heterogeneous echogenicity within the uterus suggestive of small fibroid . 2. Mild increased echogenicity within the renal medullary portions bilaterally suggestive medullary s ponge kidney. Reviewed by: Diana Draper MD on 11/29/2019 4:32 PM PDT Approved by: Diana Draper MD on 11/29/2019 4:32 PM PDT Station ID: [id number]
== END 2019-11-28 18:53 | disposition home or self-care (01) ==
LOC: DI 18:52
PROVIDERS: ATTEND Obstetrics & Gynecology
DX: R10.2 Pelvic and perineal pain (principal)
CPT/HCPCS: 76830; 76856

== ENCOUNTER 2019-12-13 08:11 | Outpatient (CLI) | payer BC, MEDICARE ==
[2019-12-13 10:02] LABS: ALBUMIN 4.5 g/dL (3.2-5.5); ALBUMIN/GLOBULIN RATIO 1.7 (1.0-2.2); BILIRUBIN,TOTAL 0.7 mg/dL (0.2-1.0); CALCIUM 9.4 mg/dL (8.5-10.3); CREATININE 0.7 mg/dL (0.4-1.0); TOTAL PROTEIN 7.2 g/dL (6.7-8.2)
== END 2019-12-13 08:12 | disposition home or self-care (01) ==
LOC: LAB 08:11
PROVIDERS: ATTEND Psychiatry & Neurology Psychiatry
DX: F31.74 Bipolar disorder, in full remission, most recent episode manic (principal); Z79.899 Other long term (current) drug therapy
CPT/HCPCS: 36415; 80053; 80175

== ENCOUNTER 2020-02-01 16:11 | Outpatient (CLI) | payer BC, MEDICARE ==
[2020-02-02 04:01] LABS: VALPROIC ACID (DEPAKOTE) 51.2 ug/mL
== END 2020-02-01 16:12 | disposition home or self-care (01) ==
LOC: LAB 16:11
PROVIDERS: ATTEND Psychiatry & Neurology Psychiatry
DX: F31.74 Bipolar disorder, in full remission, most recent episode manic (principal); Z79.899 Other long term (current) drug therapy
CPT/HCPCS: 36415; 80164

== ENCOUNTER 2020-03-20 08:09 | Outpatient (CLI) | payer BC, MEDICARE ==
[2020-03-20 08:57] LABS: VALPROIC ACID (DEPAKOTE) 71.9 ug/mL
== END 2020-03-20 08:10 | disposition home or self-care (01) ==
LOC: LAB 08:09
PROVIDERS: ATTEND Psychiatry & Neurology Psychiatry
DX: F31.74 Bipolar disorder, in full remission, most recent episode manic (principal)
CPT/HCPCS: 36415; 80164; 80175

== ENCOUNTER 2020-08-18 09:34 | Outpatient (CLI) | payer BC, MEDICARE ==
[2020-08-18 10:10] LABS: ALBUMIN 4.2 g/dL (3.2-5.5); ALBUMIN/GLOBULIN RATIO 1.8 (1.0-2.2); ALKALINE PHOSPHATASE 47 IU/L (42-121); ALT ALANINE AMINOTRANSFERASE 22 IU/L (10-60); AST ASPARTATE AMINOTRANSFERASE 17 IU/L (10-42); BILIRUBIN,TOTAL 0.4 mg/dL (0.2-1.0); BUN - BLOOD UREA NITROGEN 12 mg/dL (6-20); CALCIUM 8.5 mg/dL (8.5-10.3); CARBON DIOXIDE - CO2 26 mmol/L (21-32); CHLORIDE 105 mmol/L (101-111); CREATININE 0.7 mg/dL (0.4-1.0); GFR - MDRD 92 (>89); GLUCOSE 114 mg/dL (70-100); POTASSIUM 4.1 mmol/L (3.5-5.0); SODIUM 139 mmol/L (135-145); TOTAL PROTEIN 6.6 g/dL (6.7-8.2); VALPROIC ACID (DEPAKOTE) 55.3 ug/mL
== END 2020-08-18 09:35 | disposition home or self-care (01) ==
LOC: LAB 09:34
PROVIDERS: ATTEND Psychiatry & Neurology Psychiatry
DX: Z79.899 Other long term (current) drug therapy (principal); F31.74 Bipolar disorder, in full remission, most recent episode manic
CPT/HCPCS: 36415; 80053; 80164; 80175

== ENCOUNTER 2020-09-27 14:16 | Emergency (ER) | payer BC, MEDICARE ==
--- NOTE | 2020-09-27 14:57 | ED Physician Documentation ---
PD HPI HEADACHE - Stated complaint Stated Complaint: HEADACHE - Chief complaint Chief Complaint: Neuro - History obtained from History obtained from: Patient - History of Present Illness Timing - onset: How many days ago (8) Timing - onset during: Light activity Timing - duration: Days (8) Timing - details: Gradual onset, Still present, Waxing and waning Worst headache ever?: No: Worst headache ever? (similar to other migraines and status migraines. No atypical symptoms.) Location: Front, Left Quality: Throbbing, Aching Associated symptoms: Nausea. No: Fever, Stiff neck, Vomiting, Weakness, Vision changes (but has light sensitivity.) Improved by: Dark room. No: Meds (decreased headache with Rx meds from her neurologist. pain improved minimal with oral meds, but back to full within hour or two. Talked with Neurology office and directed to ER. Patient has had to come to ER infrequently for status migraines and does well with IV meds.) Worsened by: Light Contributing factors: No: Recent illness, Trauma Similar symptoms before: Diagnosis (status migraine intermittently (few times yearly).) Recently seen: Not recently seen Review of Systems Constitutional: denies: Fever, Chills Eyes: reports: Photophobia. denies: Loss of vision Nose: denies: Rhinorrhea / runny nose, Congestion Throat: denies: Sore throat Respiratory: denies: Cough GI: reports: Nausea. denies: Abdominal Pain, Vomiting, Diarrhea Skin: denies: Rash, Lesions Neurologic: reports: Generalized weakness, Headache. 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: Other (PCOS) Psych: Bipolar disorder Musculoskeletal: Fibromyalgia - Past Surgical History Past Surgical History: Yes /SENIOR UNDERWRITER: Dilation and currettage - Present Medications Home Medications: Ambulatory Orders Medication Instructions Recorded Confirmed Lurasidone HCl [Latuda] 80 mg ORAL DAILY 12/01/17 12/01/17 lamoTRIgine [LaMICtal] 200 mg ORAL DAILY 12/01/17 12/01/17 HYDROmorphone [Dilaudid] 2 mg PO Q4H PRN #14 tablet 03/16/19 Butalb/Acetaminophen/Caffeine 1 each PO Q6H PRN #15 09/27/20 [Fioricet 50-300-40 mg Capsule] Indomethacin [Indocin] 25 mg PO BIDWM #10 09/27/20 Promethazine Supp [Phenergan Supp] 25 mg NV Q6H PRN #15 supp 09/27/20 - Allergies Allergies/Adverse Reactions: Allergies Allergy/AdvReac Type Severity Reaction Status Date / Time narcotics Allergy Hallucinati Uncoded 03/16/19 13:12 ons - Social History Does the pt smoke?: No Smoking Status: Never smoker Does the pt drink ETOH?: No Does the pt have substance abuse?: No - Immunizations Immunizations are current?: Yes - POLST Patient has POLST: No PD ED PE NORMAL - Vitals Vital signs reviewed: Yes - General General: Alert and oriented X 3, No acute distress (appears ncomfrtable but pleasant and conversant. wearing sunglasses to reduce light. ), Well developed/nourished - HEENT HEENT: PERRL, EOMI, Pharynx benign - Neck Neck: Supple, no meningeal sign, No adenopathy - Cardiac Cardiac: No murmur - Respiratory Respiratory: Clear bilaterally - Derm Derm: Normal color, Warm and dry - Neuro Neuro: Alert and oriented X 3, outside sales 2-12 intact, No motor deficit, No sensory deficit, Normal speech, Other Eye Opening: Spontaneous Motor: Obeys Commands Verbal: Oriented GCS Score: 15 - Psych Psych: Normal mood, Normal affect Results - Vitals Vitals: Vital Signs - 24 hr 09/27/20 09/27/20 14:42 18:13 Temperature 36.6 C 36.6 C Heart Rate 70 73 Respiratory 15 16 Rate Blood Pressure 121/80 110/87 H O2 Saturation 100 99 Oxygen O2 Source Room air PD MEDICAL DECISION MAKING - ED course Complexity details: reviewed old records, re-evaluated patient (improved mildly with initial meds. Given 2nd dose of Reglan. Initially was not noticing much im provment so getting ordered for more meds, but then she said the headache broke and was much better, with just mild now. Still some nausea. So given just Inapsine as third round med. ), d/w patient Departure - Departure Disposition: 01 Home, Self Care Clinical Impression: Migraine with status migrainosus Qualifiers: Migraine type: without aura Intractability: intractable Qualified Code(s): G43.011 - Migraine without aura, intractable, with status migrainosus Condition: Stable Record reviewed to determine appropriate education?: Yes Instructions: ED Headache Migraine Prescriptions: Butalb/Acetaminophen/Caffeine [Fioricet 50-300-40 mg Capsule] 1 each PO Q6H PRN #15 PRN Reason: Migraine Indomethacin [Indocin] 25 mg PO BIDWM #10 Promethazine Supp [Phenergan Supp] 25 mg NV Q6H PRN #15 supp PRN Reason: Nausea / Vomiting Comments: Continue your current medications. Try to stay well-hydrated. For nausea/migraine you could try the promethazine suppository and see if that helps with nausea or vomiting. Add Fioricet antimigraine medication every 6 hours if needed for headache. If tolerated, you could try indomethacin anti-inflammatory twice daily with food for the next 3 to 5 days as well. This is used at times for persistent headache. Follow-up with your neurologist over the next several days to update on your symptoms. Return to the ER as needed. For some reason, I could not trasmit them electronically to [facility], so printed the prescriptions. Discharge Date/Time: 09/27/20 18:14
[2020-09-27] MEDS ORDERED: SODIUM CHLORIDE 0.9% 1,000 ML IV STA ×2 (15:20→17:13)
[2020-09-27] MEDS ORDERED: METOCLOPRAMIDE 10 MG/2 ML VIAL IVP STA ×2 (15:21→16:10)
[2020-09-27] MEDS ORDERED: KETOROLAC 15 MG/ML VIAL IVP STA (15:21)
[2020-09-27] MEDS ORDERED: diphenhydrAMINE INJ 50 MG/ML VIAL IVP STA (15:21)
[2020-09-27] MEDS ORDERED: DEXAMETHASONE 10 MG/ML VIAL IVP STA (15:21)
[2020-09-27] MEDS ORDERED: DROPERIDOL 5 MG/2 ML VIAL IVP STA (16:47)
[2020-09-27] MEDS ORDERED: KETAMINE 500 MG/10 ML VIAL IVP STA (16:48)
[2020-09-27 18:14] VITALS: BP 110/87
== END 2020-09-27 18:14 | disposition home or self-care (01) ==
LOC: ED 14:16
DX: G43.011 Migraine without aura, intractable, with status migrainosus (principal)
CPT/HCPCS: 96361; 96374; 96375; 96376; 99284; 99285; J1200; J2765

== ENCOUNTER 2020-11-02 11:53 | Outpatient (CLI) | payer BC, MEDICARE ==
[2020-11-02 13:23] LABS: FOLLICLE STIMULATING HORMONE 3.93 mIU/mL
[2020-11-02 13:24] LABS: LUTEINIZING HORMONE 2.72 mIU/mL
[2020-11-02 14:08] LABS: VALPROIC ACID (DEPAKOTE) 96.1 ug/mL
[2020-11-02 14:17] LABS: T4 (THYROXINE) 6.03 ug/dL (6.09-12.23)
[2020-11-02 14:21] LABS: THYROID STIMULATING HORMONE 1.08 uIU/mL (0.34-5.60)
[2020-11-02 14:23] LABS: FREE T4 (FREE THYROXINE) 0.68 ng/dL (0.58-1.64)
== END 2020-11-02 11:54 | disposition home or self-care (01) ==
LOC: LAB 11:53
PROVIDERS: ATTEND Psychiatry & Neurology Psychiatry
DX: E28.2 Polycystic ovarian syndrome (principal); G43.909 Migraine, unspecified, not intractable, without status migrainosus; Z79.899 Other long term (current) drug therapy; F31.74 Bipolar disorder, in full remission, most recent episode manic
CPT/HCPCS: 36415; 80164; 80327; 82627; 82672; 83001; 83002; 84144; 84436; 84439; 84443

== ENCOUNTER 2021-01-16 11:22 | Outpatient (CLI) | payer BC | END 2021-01-16 11:23 | disposition home or self-care (01) | LOC: LAB 11:22 | PROVIDERS: ATTEND Naturopath | DX: Z36.9 Encounter for antenatal screening, unspecified (principal) | CPT/HCPCS: 36415; 84702 ==

== ENCOUNTER 2021-04-19 09:06 | Outpatient (CLI) | payer BC ==
[2021-04-19 09:49] LABS: ALBUMIN 4.3 g/dL (3.2-5.5); ALBUMIN/GLOBULIN RATIO 1.7 (1.0-2.2); ALKALINE PHOSPHATASE 39 IU/L (42-121); ALT ALANINE AMINOTRANSFERASE 25 IU/L (10-60); AST ASPARTATE AMINOTRANSFERASE 18 IU/L (10-42); BILIRUBIN,TOTAL 0.7 mg/dL (0.2-1.0); BUN - BLOOD UREA NITROGEN 16 mg/dL (6-20); CALCIUM 9.1 mg/dL (8.5-10.3); CARBON DIOXIDE - CO2 27 mmol/L (21-32); CHLORIDE 103 mmol/L (101-111); CREATININE 0.9 mg/dL (0.4-1.0); GFR - MDRD 69 (>89); GLUCOSE 99 mg/dL (70-100); POTASSIUM 4.2 mmol/L (3.5-5.0); SODIUM 140 mmol/L (135-145); TOTAL PROTEIN 6.8 g/dL (6.7-8.2); VALPROIC ACID (DEPAKOTE) 79.7 ug/mL
[2021-04-19 10:04] LABS: LITHIUM 0.26 mmol/L; THYROID STIMULATING HORMONE 1.58 uIU/mL (0.34-5.60)
[2021-04-19 10:06] LABS: FREE T4 (FREE THYROXINE) 0.65 ng/dL (0.58-1.64)
== END 2021-04-19 09:07 | disposition home or self-care (01) ==
LOC: LAB 09:06
PROVIDERS: ATTEND Psychiatry & Neurology Psychiatry
DX: F31.74 Bipolar disorder, in full remission, most recent episode manic (principal); F31.63 Bipolar disorder, current episode mixed, severe, without psychotic features; Z79.899 Other long term (current) drug therapy
CPT/HCPCS: 36415; 80053; 80164; 80175; 80178; 84439; 84443

== ENCOUNTER 2021-05-08 11:39 | Outpatient (CLI) | payer BC ==
[2021-05-08 12:26] LABS: % IRON SATURATION 26 % (20-50); BUN - BLOOD UREA NITROGEN 11 mg/dL (6-20); CALCIUM 9.1 mg/dL (8.5-10.3); CARBON DIOXIDE - CO2 26 mmol/L (21-32); CHLORIDE 101 mmol/L (101-111); CREATININE 0.8 mg/dL (0.4-1.0); GFR - MDRD 79 (>89); GLUCOSE 105 mg/dL (70-100); IRON 98 ug/dL (28-170); POTASSIUM 4.1 mmol/L (3.5-5.0); SODIUM 138 mmol/L (135-145); TOTAL IRON BINDING CAPACITY 379 ug/dL (250-450); TRANSFERRIN 271 mg/dL (192-382); VALPROIC ACID (DEPAKOTE) 79.3 ug/mL
== END 2021-05-08 11:40 | disposition home or self-care (01) ==
LOC: LAB 11:39
PROVIDERS: ATTEND Psychiatry & Neurology Psychiatry
DX: F31.74 Bipolar disorder, in full remission, most recent episode manic (principal); D64.9 Anemia, unspecified; Z79.899 Other long term (current) drug therapy; F31.63 Bipolar disorder, current episode mixed, severe, without psychotic features
CPT/HCPCS: 36415; 80048; 80164; 80178; 82728; 83540; 84466; 85014

== ENCOUNTER 2022-04-18 14:54 | Emergency (ER) | payer MEDICARE, BC ==
--- OUTSIDE RECORDS SUMMARY | 2022-04-18 15:23 | EXTERNAL MEDICAL SUMMARY RPT | Continuity of Care Document ---
:1980 Author Organization [facility] Address [address] [place] [address] Phone Care Team Providers Name Role Phone Alexis Potts Unavailable Unavailable Allergies No information. Encounters No information. Functional Status No information. Immunizations No information. Medications date description [facility] Dival[facility] 2022-01-23 00:00 [place] [facility] 2022-01-23 00:00 Lamotrigine [facility] Problems date description facility 2022-01-23 00:00 Postsurgical menopause [facility] 2022-01-31 12:24 Asymptomatic postprocedural ovarian yoan [facility] 2022-01-31 12:24 Premenstrual dysphoric disorder [facility] Procedures No information. Results/Labs test date author facility value unit interpret ation Result panel 1 (unknown) (no date) (unknown) [place] (no value) (units [facility] unknown) Result panel 2 (unknown) (no date) (unknown) [place] (no value) (units [facility] unknown) Result panel 3 (unknown) (no date) (unknown) [place] (no value) (units ([facility]) [facility] unknown) Result panel 4 (unknown) (no date) (unknown) (unknown) 541.0 ug/dl (unkn own) (unknown) (no date) (unknown) (unknown) 541.0 ug/dl 2191- 5 (unknown) (no date) (unknown) (unknown) 85 pg/ml 2254- 1 (unknown) (no date) (unknown) (unknown) 85 pg/ml (unkn own) Result panel 5 (unknown) (no date) (unknown) (unknown) 1.97 ng/ml (unkn own) (unknown) (no date) (unknown) (unknown) 1.97 ng/ml (unkn own) Result panel 6 (unknown) (no date) (unknown) (unknown) 541.0 ug/dl (unkn own) (unknown) (no date) (unknown) (unknown) 541.0 ug/dl (unkn own) Result panel 7 (unknown) (no date) (unknown) (unknown) 85 pg/ml (unkn own) (unknown) (no date) (unknown) (unknown) 85 pg/ml (unkn own) Social History date description facility 2022-01-23 00:00 Never smoked tobacco (finding) [facility] 2022-03-26 00:00 Never smoked tobacco (finding) [facility] Vital Signs No information.
[2022-04-18 15:35] LABS: BASOPHILS % (AUTO) 0.3 %; EOSINOPHILS # (AUTO) 0.1 10^3/uL (0.0-0.7); EOSINOPHILS % (AUTO) 0.8 %; HCT - HEMATOCRIT 39.4 % (37.0-47.0); HGB - HEMOGLOBIN 12.8 g/dL (12.0-16.0); LYMPHOCYTES % (AUTO) 30.1 %; MEAN CORPUSCULAR HEMOGLOBIN 30.6 pg (27.0-31.0); MEAN CORPUSCULAR HGB CONC 32.5 g/dL (32.0-36.0); MEAN CORPUSCULAR VOLUME 94.3 fL (81.0-99.0); MEAN PLATELET VOLUME 9.5 fL (7.9-10.8); MONOCYTES # (AUTO) 0.5 10^3/uL (0.0-1.0); MONOCYTES % (AUTO) 7.7 %; NEUTROPHILS % (AUTO) 60.8 %; PLT - PLATELET COUNT 316 10^3/uL (130-450); RED BLOOD COUNT 4.18 10^6/uL (4.20-5.40); RED CELL DISTRIBUTION WIDTH 12.6 % (12.0-15.0); WHITE BLOOD COUNT 6.6 x10^3/uL (4.8-10.8)
--- NOTE | 2022-04-18 15:39 | XRAY Report ---
PROCEDURE: Chest 1 View X-Ray INDICATIONS: Chest Pain TECHNIQUE: One view of the chest was acquired. COMPARISON: None. FINDINGS: Surgical changes and devices: None. Lungs and pleura: No pleural effusions or pneumothorax. Lungs are clear. Mediastinum: Mediastinal contours appear normal. Heart size is normal. Bones and chest wall: No suspicious bony lesions. Overlying soft tissues appear unremarkable. IMPRESSION: Normal for age, source of current chest pain symptoms is not seen. Reviewed by: Demian Perkins MD on 04/18/2022 3:38 PM PST Approved by: Demian Perkins MD on 04/18/2022 3:38 PM PST Station ID: [id number]
--- NOTE | 2022-04-18 15:53 | ED Physician Documentation ---
History of Present Illness - Stated complaint Stated Complaint: TIGHT CHEST PX,RT ARM PX - Chief complaint Chief Complaint: Cardiac - Additonal information Additional information: 42-year-old female presents to the emergency department for evaluation of sudden onset sharp chest pain that radiated to the back. It came out of nowhere and occurred when she was standing. Shortly thereafter she had some pain in her sternal region. Since then it has hurt to take a deep breath. With this onset of sharp pain she also had radiation to the left arm. Was mildly diaphoretic and nauseated. Patient has no previous history of hypertension or coronary artery disease non- smoker. Glass of wine each day. Did have a hysterectomy about 1 year ago but is not on any hormone supplementation. There is a remote history of an aortic dissection in her uncle. There is a history of coronary artery disease in both her grandparents. 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) Psych: Bipolar disorder Musculoskeletal: Fibromyalgia - Past Surgical History Past Surgical History: Yes /PANTOGRAPH ENGRAVER: Dilation and currettage - Present Medications Home Medications: Ambulatory Orders Medication Instructions Recorded Confirmed Lurasidone HCl [Latuda] 80 mg ORAL DAILY 12/01/17 12/01/17 lamoTRIgine [LaMICtal] 200 mg ORAL DAILY 12/01/17 12/01/17 HYDROmorphone [Dilaudid] 2 mg PO Q4H PRN #14 tablet 03/16/19 Butalb/Acetaminophen/Caffeine 1 each PO Q6H PRN #15 09/27/20 [Fioricet 50-300-40 mg Capsule] Indomethacin [Indocin] 25 mg PO BIDWM #10 09/27/20 Promethazine Supp [Phenergan Supp] 25 mg CO Q6H PRN #15 supp 09/27/20 - Allergies Allergies/Adverse Reactions: Allergies Allergy/AdvReac Type Severity Reaction Status Date / Time narcotics Allergy Hallucinati Uncoded 04/18/22 15:05 ons - Social History Does the pt smoke?: No Smoking Status: Never smoker Does the pt drink ETOH?: No Does the pt have substance abuse?: No - Immunizations Immunizations are current?: Yes - POLST Patient has POLST: No PD ED PE NORMAL - General General: Alert and oriented X 3, No acute distress, Well developed/nourished - HEENT HEENT: Atraumatic, Moist mucous membranes - Neck Neck: Supple, no meningeal sign, No adenopathy - Cardiac Cardiac: RRR, No murmur - Respiratory Respiratory: No respiratory distress, Clear bilaterally - Abdomen Abdomen: Normal bowel sounds, Soft, Non tender - Derm Derm: Normal color, Warm and dry, No rash - Extremities Extremities: No deformity - Neuro Neuro: Alert and oriented X 3, catia designer 2-12 intact Eye Opening: Spontaneous Motor: Obeys Commands Verbal: Oriented GCS Score: 15 Results - Vitals Vitals: Vital Signs - 24 hr 04/18/22 04/18/22 04/18/22 15:03 17:21 17:34 Temperature 37.1 C Heart Rate 96 88 93 Respiratory 20 19 18 Rate Blood Pressure 141/94 H 130/99 H 124/95 H O2 Saturation 100 99 99 Oxygen O2 Source Room air - EKG (time done) 1513 Rate: Rate (enter#) (1513) Rhythm: NSR [place]: Normal Intervals: Normal CO. No: Prolonged QT QRS: LVH Ischemia: Normal ST segments Compare to prior EKG: Old EKG unavailable Computer interpretation: Agree with computer - Labs Labs: Laboratory Tests 04/18/22 04/18/22 04/18/22 15:29 15:29 15:29 WBC 6.6 RBC 4.18 L Hgb 12.8 Hct 39.4 MCV 94.3 MCH 30.6 MCHC 32.5 RDW 12.6 Plt Count 316 MPV 9.5 Neut # (Auto) 4.0 Lymph # (Auto) 2.0 Elbert # (Auto) 0.5 Eos # (Auto) 0.1 Baso # (Auto) 0.0 Absolute Nucleated RBC 0.00 Nucleated RBC % 0.0 PT 10.2 INR 0.9 Sodium 135 Potassium 3.2 L Chloride 100 L Carbon Dioxide 26 Anion Gap 9.0 BUN 12 Creatinine 0.8 Estimated GFR (MDRD) 78 L Glucose 91 Calcium 9.4 Total Bilirubin 0.5 AST 22 ALT 24 Alkaline Phosphatase 46 Troponin I High Sens Total Protein 7.2 Albumin 4.4 Globulin 2.8 Albumin/Globulin Ratio 1.6 Lipase 35 Serum HCG, Qual 04/18/22 04/18/22 15:29 15:29 WBC RBC Hgb Hct MCV MCH MCHC RDW Plt Count MPV Neut # (Auto) Lymph # (Auto) Elbert # (Auto) Eos # (Auto) Baso # (Auto) Absolute Nucleated RBC Nucleated RBC % PT INR Sodium Potassium Chloride Carbon Dioxide Anion Gap BUN Creatinine Estimated GFR (MDRD) Glucose Calcium Total Bilirubin AST ALT Alkaline Phosphatase Troponin I High Sens < 2.3 L Total Protein Albumin Globulin Albumin/Globulin Ratio Lipase Serum HCG, Qual NEGATIVE - Rads (name of study) CT angio chest Radiology: Final report received (No pulmonary embolism. No aortic aneurysm or secondary evidence of acute aortic syndrome. 1 cm lesion in the superior pole of the left kidney has indeterminate attenuation. Recommend nonemergent ultrasound for further characterization) cxr Radiology: Final report received PD Medical Decision Making - ED course Complexity details: reviewed results, re-evaluated patient, considered differential, d/w patient ED course: 42-year-old female presents to the emergency department for evaluation of sudden sharp chest pain that radiated to her left arm cause nausea. She also had a burning and pain under her sternum. She is not a smoker has no history of hypertension. She did have a hysterectomy bed a year ago but is not on estrogen. There is a strong family history for coronary artery disease and she also reports an uncle that had an aortic dissection. On exam to the emergency department the patient appears rather well. She is normotensive without tachycardia or hypoxia. Chest pain is not reproducible. She reports deep pain with inspiration. However given the reported radiation to the back and the family history of aortic dissection I did order a CT angiogram of the chest. Reassuringly this showed no findings of pulmonary Shinto, aneurysm or aortic dissection. Her EKG per my interpretation is nonischemic and troponin was negative. The rest of her screening CBC and electrolytes were also unremarkable. She is not . The patient continues to report a pleuritic chest pain. Here in the emergency department she was administered Toradol 30 mg IV with good relief of symptoms. She may simply have a pleurisy at this juncture. She is advised close follow-up with her primary care provider. Given her age and this history she may benefit from an outpatient cardiac stress test. Today her heart score is 2 putting her at low risk for Mace. I have discussed the usual emergent return precautions for concerns of worsening symptoms Departure - Departure Disposition: 01 Home, Self Care Clinical Impression: Pleuritic chest pain Condition: Stable Record reviewed to determine appropriate education?: Yes Instructions: ED Chest Pain Pleurisy Comments: Vandana you came to the emergency department today because you developed a sharp chest pain that radiated to your back and left arm. It also hurt to take a deep breath. You do not smoke and you have no history of high blood pressure. You did have a hysterectomy but not on any hormones. Here in the emergency department your EKG is nonischemic meaning it does not show signs of a heart attack. Your troponin was normal. All of your screening labs and electrolytes were also essentially normal. However given how you reported the chest pain and the family history for an aortic dissection we did do a CT angiogram of the chest. The radiologist did not find any worrisome findings. Specifically there was no pneumonia, pleural effusion, pulmonary embolism, aortic dissection or aortic aneurysm. At this time the cause of the chest pain is not clear though it may be simple pleurisy or inflammation of the lining of the lung. I do recommend that you take 600 mg of ibuprofen with food 2-3 times a day for the next few days. I also recommend very close follow-up with your primary care provider as an outpatient. You may benefit from referral for an echocardiogram or cardiac stress test. As always return to the emergency department if you have worsening symptoms, develop fevers, have any fainting episodes or are unable to breathe.
[2022-04-18 15:57] LABS: ALBUMIN 4.4 g/dL (3.2-5.5); ALBUMIN/GLOBULIN RATIO 1.6 (1.0-2.2); BILIRUBIN,TOTAL 0.5 mg/dL (0.2-1.0); CALCIUM 9.4 mg/dL (8.5-10.3); CREATININE 0.8 mg/dL (0.4-1.0); POTASSIUM 3.2 mmol/L (3.5-5.0); TOTAL PROTEIN 7.2 g/dL (6.7-8.2)
[2022-04-18 16:02] LABS: HCG,QUALITATIVE BLOOD NEGATIVE
[2022-04-18 16:12] LABS: INR 0.9 (0.8-1.2); PT - PROTHROMBIN TIME 10.2 secs (9.9-12.6)
[2022-04-18] MEDS ORDERED: iohexoL-300 100 ML VIAL ONE (16:25)
[2022-04-18] MEDS ORDERED: iohexoL-300 100 ML VIAL IVP ONE (16:57)
--- NOTE | 2022-04-18 17:16 | CT Report ---
PROCEDURE: ANGIO CHEST W/WO INDICATIONS: sharp pleuritic chest pain; radiates to back CONTRAST: 80ml omni 300 TECHNIQUE: After the administration of intravenous contrast, 2 mm axial images were acquired from the pulmonary apices to the posterior costophrenic angles during the arterial phase. In addition, 1 mm lung kernel and 5 mm soft tissue kernel reconstructions were performed. 3-dimensional coronal oblique maximum int ensity projection (MIP) reformats, 8 mm axial MIP, and 5 mm coronal and sagittal MPR reformats were t hen performed through the thorax. For radiation dose reduction, the following was used: automated exp osure control, adjustment of mA and/or kV according to patient size. COMPARISON: Same day x-ray FINDINGS: Image quality: Excellent. Pulmonary arteries: Pulmonary arteries are normal in size, and demonstrate no intraluminal filling d efects to suggest central pulmonary embolism. Lungs and pleura: Lungs are clear. No pleural effusions or pneumothorax. Central and peripheral ai rways are patent. Mediastinum: Heart size is normal, without pericardial effusion. No mediastinal or hilar adenopathy . Thoracic aorta is normal in caliber and enhancement. Esophagus is normal in caliber, without hiat al hernia. Bones and chest wall: No suspicious bony lesions. Ribs and thoracic spine appear intact throughout. No axillary or supraclavicular adenopathy. The thyroid is normal in size and there are no incident al findings. Abdomen: On the superior pole of the left kidney, there is a 1 cm exophytic lesion with greater than expected attenuation and a cyst. IMPRESSION: No PE. No aortic aneurysm or secondary evidence of acute aortic syndrome. 1 cm lesion on the superior pole of the left kidney has indeterminate attenuation. Recommend nonemerg ent ultrasound for further characterization. Reviewed by: Alexis Mccartney on 04/18/2022 5:15 PM PST Approved by: Alexis Mccartney on 04/18/2022 5:15 PM PST Station ID: [id number]
[2022-04-18] MEDS ORDERED: KETOROLAC 30 MG/ML VIAL IVP STA (17:24)
[2022-04-18 17:34] VITALS: BP 124/95
== END 2022-04-18 17:53 | disposition home or self-care (01) ==
LOC: ED 14:54
DX: R07.81 Pleurodynia (principal)
CPT/HCPCS: 36415; 71045; 71275; 80053; 83690; 84484; 84703; 85025; 85610; 93005; 96374; 99284; Q9967

== ENCOUNTER 2022-07-25 13:49 | Outpatient (CLI) | payer MEDICARE, BC ==
[2022-07-25 14:45] LABS: LITHIUM 0.87 mmol/L
[2022-07-25 14:48] LABS: ALBUMIN 4.3 g/dL (3.2-5.5); ALBUMIN/GLOBULIN RATIO 1.5 (1.0-2.2); ALKALINE PHOSPHATASE 57 IU/L (42-121); ALT ALANINE AMINOTRANSFERASE 22 IU/L (10-60); AST ASPARTATE AMINOTRANSFERASE 16 IU/L (10-42); BILIRUBIN,TOTAL 0.5 mg/dL (0.2-1.0); BUN - BLOOD UREA NITROGEN 14 mg/dL (6-20); CALCIUM 9.4 mg/dL (8.5-10.3); CARBON DIOXIDE - CO2 26 mmol/L (21-32); CHLORIDE 105 mmol/L (101-111); CHOL/HDL RATIO 3.4 (<4.4); CHOLESTEROL 207 mg/dL; CREATININE 0.7 mg/dL (0.4-1.0); GFR - MDRD 91 (>89); GLUCOSE 91 mg/dL (70-100); HDL CHOLESTEROL 61 mg/dL; LDL CHOLESTEROL,CALCULATED 109 mg/dL; LDL/HDL RATIO 1.8 (<4.4); POTASSIUM 3.7 mmol/L (3.5-5.0); SODIUM 139 mmol/L (135-145); TOTAL PROTEIN 7.2 g/dL (6.7-8.2); TRIGLYCERIDES 183 mg/dL; VALPROIC ACID (DEPAKOTE) 70.2 ug/mL; VLDL CHOLESTEROL 37 mg/dL
[2022-07-28 20:08] LABS: LAMOTRIGINE (LAMICTAL) 10.3 ug/mL (2.0-20.0)
== END 2022-07-25 13:50 | disposition home or self-care (01) ==
LOC: LAB 13:49
PROVIDERS: ATTEND Psychiatry & Neurology Psychiatry
DX: F31.9 Bipolar disorder, unspecified (principal); Z79.899 Other long term (current) drug therapy; E89.40 Asymptomatic postprocedural ovarian failure
CPT/HCPCS: 36415; 80053; 80061; 80164; 80175; 80178; 82627; 83721

== ENCOUNTER 2023-02-23 09:58 | Outpatient (CLI) | payer BC, MEDICARE, MEDICAID | END 2023-02-23 09:59 | disposition critical access hospital (66) | LOC: EMS 09:58 | DX: R53.1 Weakness (principal) | CPT/HCPCS: A0425; A0429 ==

== ENCOUNTER 2023-02-23 10:22 | Emergency (ER) | payer BC, MEDICARE, MEDICAID ==
[2023-02-23 11:34] LABS: B. PARAPERTUSSIS- RESP PCR PAN NOT DETECTED; B. PERTUSSIS- RESP PCR PANEL NOT DETECTED; C. PNEUMONIAE- RESP PCR PANEL NOT DETECTED; CORONAVIRUS 229E-RESP PCR NOT DETECTED; CORONAVIRUS HKU1-RESP PCR NOT DETECTED; CORONAVIRUS NL63-RESP PCR NOT DETECTED; CORONAVIRUS OC43-RESP PCR NOT DETECTED; HUMAN METAPNEUMOVIRUS NOT DETECTED; INFLUENZA A- RESP PCR PANEL NOT DETECTED; INFLUENZA B - RESP PCR PANEL NOT DETECTED; M. PNEUMONIAE- RESP PCR PANEL NOT DETECTED; PARAINFLUENZA VIRUS 1 NOT DETECTED; PARAINFLUENZA VIRUS 2 NOT DETECTED; PARAINFLUENZA VIRUS 3 NOT DETECTED; PARAINFLUENZA VIRUS 4 NOT DETECTED; RHINOVIRUS/ENTEROVIRUS DETECTED; RSV- RESP PCR PANEL NOT DETECTED; SARS-CoV-2 -RESP PCR PANEL NOT DETECTED
--- NOTE | 2023-02-23 11:37 | ED Physician Documentation ---
History of Present Illness - Stated complaint Stated Complaint: WEAKNESS - Chief complaint Chief Complaint: General - History obtained from History obtained from: Patient, EMS - Additonal information Additional information: 42-year-old woman with a lot of bone and joint issues and bipolar disorder ate a cookie yesterday. She says the sugar is out of the ordinary for her. Profoundly fatigued last night and went to bed early. This morning she got up and was very weak and feels disassociated. She ended up kind of collapsing without syncope, she was just weak and could not get off the ground. No injuries. States she has had similar symptoms in the past when she had COVID and she was exposed last week. Review of Systems Constitutional: reports: Fatigue. 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 Psych: Bipolar disorder Musculoskeletal: Fibromyalgia - Past Surgical History Past Surgical History: Yes /WELLNESS ASSISTANT: Dilation and currettage, Hysterectomy - Present Medications Home Medications: Ambulatory Orders Medication Instructions Recorded Confirmed lamoTRIgine [LaMICtal] 200 mg ORAL DAILY 12/01/17 02/23/23 Divalproex Sodium [Depakote] 1,000 mg PO DAILY 02/23/23 02/23/23 [place] Carbonate 900 mg PO HS 02/23/23 02/23/23 - Allergies Allergies/Adverse Reactions: Allergies Allergy/AdvReac Type Severity Reaction Status Date / Time narcotics Allergy Hallucinati Uncoded 04/18/22 15:05 ons - Social History Does the pt smoke?: No Smoking Status: Never smoker Does the pt drink ETOH?: No Does the pt have substance abuse?: No - Immunizations Immunizations are current?: Yes - POLST Patient has POLST: No PD ED PE NORMAL - Vitals Vital signs reviewed: Yes - General General: Alert and oriented X 3, No acute distress - HEENT HEENT: PERRL, EOMI - Neck Neck: Supple, no meningeal sign, No bony TTP - Cardiac Cardiac: RRR, No murmur - Respiratory Respiratory: No respiratory distress, Clear bilaterally - Abdomen Abdomen: Non tender - Back Back: No CVA TTP, No spinal TTP - Derm Derm: Normal color, Warm and dry - Extremities Extremities: No edema, No calf tenderness / cord - Neuro Neuro: Alert and oriented X 3, Normal speech Results - Vitals Vitals: Vital Signs - 24 hr 02/23/23 02/23/23 02/23/23 10:25 12:39 14:34 Temperature 36.7 C Heart Rate 93 91 98 Respiratory 18 18 18 Rate Blood Pressure 122/97 H 119/83 H 122/70 O2 Saturation 99 100 99 Oxygen O2 Source Room air - Labs Labs: Laboratory Tests 02/23/23 02/23/23 02/23/23 10:39 11:40 11:40 WBC 5.2 RBC 4.20 Hgb 12.8 Hct 39.8 MCV 94.8 MCH 30.5 MCHC 32.2 RDW 11.9 L Plt Count 333 MPV 9.7 Neut # (Auto) 3.4 Lymph # (Auto) 1.3 L Love # (Auto) 0.3 Eos # (Auto) 0.2 Baso # (Auto) 0.0 Absolute Nucleated RBC 0.00 Nucleated RBC % 0.0 Sodium 138 Potassium 3.6 Chloride 104 Carbon Dioxide 27 Anion Gap 7.0 BUN 9 Creatinine 0.7 Estimated GFR (MDRD) 91 Glucose 126 H Calcium 10.0 Magnesium 2.0 Total Bilirubin 0.3 AST 11 ALT 17 Alkaline Phosphatase 77 Total Creatine Kinase 19 L Total Protein 7.3 Albumin 4.9 Globulin 2.4 Albumin/Globulin Ratio 2.0 Nasal Adenovirus (PCR) NOT DETECTED Nasal B. parapertussis DNA (PCR) NOT DETECTED Nasal Coronavir 229E PCR NOT DETECTED Nasal Coronavir HKU1 PCR NOT DETECTED Nasal Coronavir NL63 PCR NOT DETECTED Nasal Coronavir OC43 PCR NOT DETECTED Nasal Enterovir/Rhinovir PCR DETECTED A Nasal Influenza B PCR NOT DETECTED Nasal Influenza A PCR NOT DETECTED Nasal Parainfluen 1 PCR NOT DETECTED Nasal Parainfluen 2 PCR NOT DETECTED Nasal Parainfluen 3 PCR NOT DETECTED Nasal Parainfluen 4 PCR NOT DETECTED Nasal RSV (PCR) NOT DETECTED Nasal B.pertussis DNA PCR NOT DETECTED Nasal C.pneumoniae (PCR) NOT DETECTED Neo Human Metapneumo PCR NOT DETECTED Nasal M.pneumoniae (PCR) NOT DETECTED Nasal SARS-CoV-2 (PCR) NOT DETECTED Last Dose Date UNKNOWN Last Dose Time UNKNOWN Valproic Acid 29.5 [place] 02/23/23 11:40 WBC RBC Hgb Hct MCV MCH MCHC RDW Plt Count MPV Neut # (Auto) Lymph # (Auto) Love # (Auto) Eos # (Auto) Baso # (Auto) Absolute Nucleated RBC Nucleated RBC % Sodium Potassium Chloride Carbon Dioxide Anion Gap BUN Creatinine Estimated GFR (MDRD) Glucose Calcium Magnesium Total Bilirubin AST ALT Alkaline Phosphatase Total Creatine Kinase Total Protein Albumin Globulin Albumin/Globulin Ratio Nasal Adenovirus (PCR) Nasal B. parapertussis DNA (PCR) Nasal Coronavir 229E PCR Nasal Coronavir HKU1 PCR Nasal Coronavir NL63 PCR Nasal Coronavir OC43 PCR Nasal Enterovir/Rhinovir PCR Nasal Influenza B PCR Nasal Influenza A PCR Nasal Parainfluen 1 PCR Nasal Parainfluen 2 PCR Nasal Parainfluen 3 PCR Nasal Parainfluen 4 PCR Nasal RSV (PCR) Nasal B.pertussis DNA PCR Nasal C.pneumoniae (PCR) Neo Human Metapneumo PCR Nasal M.pneumoniae (PCR) Nasal SARS-CoV-2 (PCR) Last Dose Date UNKNOWN Last Dose Time UNKNOWN Valproic Acid [place] 1.06 - Rads (name of study) MRIs of the T and L-spine shows some mild disc disease but no evidence of myelopathy. Relevant Findings:: Final report received, EMP independent interpretation of test PD Medical Decision Making - ED course ED course: 42-year-old woman with bipolar disorder and history of bone and joint problems became profoundly fatigued and weak this morning to the point where she cannot walk unassisted. She has had similar episodes in the past with COVID. Today her workup demonstrates a normal CBC, unremarkable CMP save very mild hyperglycemia, not on supratherapeutic levels of valproate and lithium and a [employer] panel positive for enterovirus/rhinovirus. She received a liter of IV fluid and after some discussion of the potential neuropsychiatric side effects of steroids she would like to go ahead with a single IV dose stating that she tolerates IV doses of steroids fine but would not want to take oral steroids. She was worried about Guillain-Villafana syndrome, but has excellent lower extremity reflexes so this is clinically ruled out. That said point made about having ascending rapid paralysis with reflexes is an interesting question and transverse myelitis is considered and she was sent for MRI for that. The MRIs were subsequently negative, but Per my reading this is not a perfectly sensitive test, and in hindsight after completing the studies, I probably should have ordered the cervical spine as well. Also consider botulism and she does eat home canned foods but none recently. We reach out to [place] but they did not have neurology on-call. Subsequently spoke with Dr. Irma Sutton at [facility] who accepts the patient Departure - Departure Disposition: 02 Transfer Acute Care Hosp Clinical Impression: Refusal of blood transfusions as patient is [employer], Paraplegia Condition: Good Forms: PCP List
[2023-02-23 11:44] LABS: BASOPHILS % (AUTO) 0.6 %; EOSINOPHILS # (AUTO) 0.2 10^3/uL (0.0-0.7); EOSINOPHILS % (AUTO) 2.9 %; HCT - HEMATOCRIT 39.8 % (37.0-47.0); HGB - HEMOGLOBIN 12.8 g/dL (12.0-16.0); LYMPHOCYTES # (AUTO) 1.3 10^3/uL (1.5-3.5); LYMPHOCYTES % (AUTO) 25.1 %; MEAN CORPUSCULAR HEMOGLOBIN 30.5 pg (27.0-31.0); MEAN CORPUSCULAR HGB CONC 32.2 g/dL (32.0-36.0); MEAN CORPUSCULAR VOLUME 94.8 fL (81.0-99.0); MEAN PLATELET VOLUME 9.7 fL (7.9-10.8); MONOCYTES # (AUTO) 0.3 10^3/uL (0.0-1.0); MONOCYTES % (AUTO) 6.2 %; NEUTROPHILS # (AUTO) 3.4 10^3/uL (1.5-6.6); PLT - PLATELET COUNT 333 10^3/uL (130-450); RED CELL DISTRIBUTION WIDTH 11.9 % (12.0-15.0); WHITE BLOOD COUNT 5.2 x10^3/uL (4.8-10.8)
[2023-02-23 12:00] LABS: ALBUMIN 4.9 g/dL (3.2-5.5); ALKALINE PHOSPHATASE 77 IU/L (42-121); ALT ALANINE AMINOTRANSFERASE 17 IU/L (10-60); AST ASPARTATE AMINOTRANSFERASE 11 IU/L (10-42); BILIRUBIN,TOTAL 0.3 mg/dL (0.2-1.0); BUN - BLOOD UREA NITROGEN 9 mg/dL (6-20); CARBON DIOXIDE - CO2 27 mmol/L (21-32); CHLORIDE 104 mmol/L (101-111); CK- CREATINE KINASE 19 IU/L (30-223); CREATININE 0.7 mg/dL (0.6-1.3); GFR - MDRD 91 (>89); GLUCOSE 126 mg/dL (74-104); POTASSIUM 3.6 mmol/L (3.5-4.5); SODIUM 138 mmol/L (135-145); TOTAL PROTEIN 7.3 g/dL (6.4-8.9); VALPROIC ACID (DEPAKOTE) 29.5 ug/mL
[2023-02-23] MEDS: SODIUM CHLORIDE 0.9% 1,000 ML IV STA (12:10)
[2023-02-23 12:14] LABS: LITHIUM 1.06 mmol/L
[2023-02-23] MEDS: DEXAMETHASONE 10 MG/ML VIAL IVP STA (12:30)
[2023-02-23] MEDS ORDERED: GADOTERATE MEGLUMINE 10 MMOL/20 ML VIAL ONE (14:55)
[2023-02-23] MEDS: GADOTERATE MEGLUMINE 10 MMOL/20 ML VIAL IVP ONE (15:55)
--- NOTE | 2023-02-23 16:41 | MRI Report ---
PROCEDURE: THORACIC SPINE W/WO INDICATIONS: leg weakness, poss transverse myelitis CONTRAST: clariscan 13.6ml TECHNIQUE: Noncontrast sagittal T1 spin echo and T2 fast spin echo, sagittal STIR, axial T1 and T2 fast spin ech o through the thoracic spine. After the administration of contrast, axial and sagittal T1 spin echo with fat saturation through the thoracic spine. COMPARISON: None. FINDINGS: Image quality: Excellent. Alignment and curvature: There is normal bony alignment. Marrow: Marrow is of normal overall signal. No acute vertebral body compression fractures. Spinal cord: Visualized spinal cord is of normal signal and size, without abnormal enhancement. Paraspinous soft tissues: No paravertebral masses or abnormal enhancement. Bilateral renal cysts ar e present. Miscellaneous: Central canal and foramina appear widely patent at all scanned levels. IMPRESSION: Negative evaluation. No evidence of myelopathy. Reviewed by: Irais Stokes MD on 02/23/2023 4:39 PM PST Approved by: Irais Stokes MD on 02/23/2023 4:39 PM PST Station ID: [id number]
--- NOTE | 2023-02-23 16:43 | MRI Report ---
PROCEDURE: LUMBAR SPINE W/WO INDICATIONS: leg weakness, poss transverse myelitis CONTRAST: clariscan 13.6ml TECHNIQUE: Noncontrast sagittal T1 spin echo and T2 fast spin echo, sagittal STIR, axial T1 and T2 fast spin ech o through the lumbar spine. In cases with scoliosis, additional coronal T2 fast spin echo may be per formed. After the administration of contrast, sagittal and axial T1 spin echo with fat saturation th rough the lumbar spine. COMPARISON: None. FINDINGS: Image quality: Excellent. Alignment and curvature: No plain films are available for comparison. Thus, for numbering purposes, 5 lumbar type vertebral bodies will be presumed for the current report. This should be confirmed with plain film correlation prior to any lumbar spinal intervention. Loss of normal lumbar lordosis. Marrow: Marrow is of normal overall signal. No acute vertebral body compression fractures. No susp icious marrow enhancement. Spinal cord: Conus medullaris terminates at the T12-L1 disc space level. Visualized spinal cord dem onstrates normal signal, without suspicious enhancement. Paraspinous soft tissues: No paravertebral masses or abnormal enhancement. Mild multilevel disc desiccation and facet hypertrophy, without significant canal, nor foraminal sten osis. No neural impingement. IMPRESSION: 1. No evidence of myelopathy. 2. Multilevel degenerative disc and facet disease without neural impingement. Reviewed by: Irais De La Rosa MD on 02/23/2023 4:41 PM PST Approved by: Irais De La Rosa MD on 02/23/2023 4:41 PM PST Station ID: [id number]
[2023-02-23 19:33] VITALS: BP 122/76; O2SAT 100
== END 2023-02-23 21:35 | disposition short-term general hospital (02) ==
LOC: EDUNIT# → SUPCPDRO 10:22 → ED 10:22
DX: G82.20 Paraplegia, unspecified (principal); B34.1 Enterovirus infection, unspecified; Z20.822 Contact with and (suspected) exposure to COVID-19
CPT/HCPCS: 36415; 72157; 72158; 80053; 80164; 80178; 82550; 83735; 85025; 87633; 96374; 99285; A9575

== ENCOUNTER 2023-06-16 18:48 | Emergency (ER) | payer BC, MEDICARE ==
[2023-06-16 19:24] VITALS: BP 138/93; O2SAT 97
--- NOTE | 2023-06-16 20:25 | ED Physician Documentation ---
PD HPI SKIN - Stated complaint Stated Complaint: LT THUMB LAC - Chief complaint Chief Complaint: Laceration - History obtained from History obtained from: Patient - Additional information Additional information: 43-year-old female presents for evaluation of left thumb laceration. Patient accidentally cut her finger on a can. She has been applying pressure but cannot get the bleeding to stop so she is here for evaluation. Patient states that she does not want a tetanus update today. Review of Systems Constitutional: denies: Fever, Chills Skin: reports: Laceration (s). 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: Dilation and currettage, Hysterectomy, Oophrectomy - Present Medications Home Medications: Ambulatory Orders Medication Instructions Recorded Confirmed lamoTRIgine [LaMICtal] 200 mg ORAL DAILY 12/01/17 06/16/23 Divalproex Sodium [Depakote] 500 mg PO DAILY 02/23/23 06/16/23 [place] Carbonate 900 mg PO HS 02/23/23 06/16/23 - Allergies Allergies/Adverse Reactions: Allergies Allergy/AdvReac Type Severity Reaction Status Date / Time narcotics AdvReac Nausea Uncoded 06/16/23 19:02 - Social History Does the pt smoke?: No Smoking Status: Never smoker Does the pt drink ETOH?: Yes Does the pt have substance abuse?: No - Immunizations Immunizations are current?: No Immunizations: Other immun not current - POLST Patient has POLST: No PD ED PE NORMAL - Vitals Vital signs reviewed: Yes - General General: Alert and oriented X 3, No acute distress, Well developed/nourished - Derm Derm: Normal color, Warm and dry, Other (1.5cm oblique laceration underneath L thumbnail to medial side of thumb. Faint ooze of venous blood) - Extremities Extremities: No deformity, No tenderness to palpate, Normal ROM s pain, Other (Full ROM of thumb) Results - Vitals Vitals: Vital Signs - 24 hr 06/16/23 19:02 Temperature 36.3 C L Heart Rate 86 Respiratory 16 Rate Blood Pressure 138/93 H O2 Saturation 97 Oxygen O2 Source Room air Procedures - Laceration (location) Finger left Wound type: Flap, Superficial Neurovascular status: Sensory intact, Motor intact, Vascular intact Tendon involvement: Tendon intact Wound preparation: Other (wiped clean) Skin layer closure: Dermabond Other: Patient tolerated well, No complications, Neurovascular intact, Dressing applied, Other (patient declined tetanus update) PD Medical Decision Making - ED course Complexity details: reviewed old records, reviewed results, re-evaluated patient, considered differential, d/w patient ED course: Well-appearing patient with accidental thumb laceration. Neurovascular intact. Patient declined tetanus update. Wound is superficial, but does have a small flap present. Wound was dermabonded into place with cessation of bleeding. Dressing applied, additional supplies at home with patient. She was advised that she should follow-up with her primary for tetanus update Departure - Departure Disposition: 01 Home, Self Care Clinical Impression: Laceration Condition: Stable Instructions: ED Laceration All Comments: Keep the wound clean and dry. The glue will naturally fall off within the next 7 to 10 days. I do highly recommend that you follow-up with primary for a tetanus update since you did not want an update here. Tylenol, ibuprofen, ice can be used as needed for pain. Forms: PCP List
== END 2023-06-16 20:40 | disposition home or self-care (01) ==
LOC: ED 18:48
DX: S61.012A Laceration without foreign body of left thumb without damage to nail, initial encounter (principal); W26.8XXA Contact with other sharp object(s), not elsewhere classified, initial encounter; M79.7 Fibromyalgia
CPT/HCPCS: 12001; 99283